=== PATIENT | female | born 1985 | race African-American/Black ===

== ENCOUNTER 2017-01-04 13:20 | Emergency (ER) | payer SELFPAY ==
[2017-01-04] MEDS ORDERED: NORMAL SALINE 500 ML IV ONE (14:38)
[2017-01-04] MEDS ORDERED: ONDANSETRON 4 MG TAB.RAPDIS PO ONE (14:39)
[2017-01-04] MEDS ORDERED: KETOROLAC TROMETHAMINE 60 MG/2 ML SDV IM ONE (14:39)
--- NOTE | 2017-01-04 14:39 | ER Document Report ---
ED Medical Screen (RME) - General Mode of Arrival: Wheelchair Information source: Patient TRAVEL OUTSIDE OF THE [place] IN LAST 30 DAYS: No - HPI Patient complains to provider of: Abdominal Pain Onset: This morning Associated Symptoms: Other - see notes above <ABBEY CANTOR - Last Filed: 01/04/17 14:42> <TELLYQUITA PEDRAZA LUPIS - Last Filed: 01/04/17 15:25> - General Chief Complaint: Abdominal Pain Stated Complaint: ABDOMINAL PAIN Notes: 31 year old female presents to the ED complaining of diffuse abdominal pain that has been present for the past few days, but suddenly got worse earlier this afternoon. Patient describes the pain as "labor pain." Patient is additionally complaining of cold and hot flashes. Patient denies dysuria. Patient denies history of cholecystectomy. (ABBEY CANTOR) - Related Data Allergies/Adverse Reactions: No Known Allergies Allergy (Verified 01/04/17 14:35) Home Medications: Current Home Medications No Home Medications 01/04/17 [History] Past Medical History - General Information source: Patient Renal/ Medical History: Denies: Hx Peritoneal Dialysis Past Surgical History: Reports: Hx Tubal Ligation. Denies: Hx Cholecystectomy - Immunizations Hx Diphtheria, Pertussis, Tetanus Vaccination: Yes <ABBEY CANTOR - Last Filed: 01/04/17 14:42> Review of Systems - Review of Systems Constitutional: See HPI, Other - hot and cold flashes EENT: No symptoms reported Cardiovascular: No symptoms reported Respiratory: No symptoms reported Gastrointestinal: See HPI, Abdominal pain - diffuse Genitourinary: No symptoms reported Female Genitourinary: No symptoms reported Musculoskeletal: No symptoms reported Skin: No symptoms reported Hematologic/Lymphatic: No symptoms reported Neurological/Psychological: No symptoms reported -: Yes All other systems reviewed and negative <ABBEY CANTOR - Last Filed: 01/04/17 14:42> Physical Exam - General General appearance: Alert, Other - Actively gagging in the exam room.. No: Appears well In distress: None - Respiratory Respiratory status: No respiratory distress - Abdominal Inspection: Normal Distension: No distension Tenderness: Tender - diffuse <ABBEY CANTOR - Last Filed: 01/04/17 14:42> Course <ABBEY CANTOR - Last Filed: 01/04/17 14:42> - Laboratory Result Diagrams: 01/04/17 14:44 01/04/17 14:44 <QUITA WILKINS - Last Filed: 01/04/17 15:25> - Re-evaluation Re-evalutation: 01/04/17 15:24 I personally performed the services described in the documentation, reviewed and edited the documentation which was dictated to the scribe in my presence, and it accurately records my words and actions. (QUITA WILKINS) Scribe Documentation - Scribe Written by Scribe:: Ana Cristina Flores, 01/04/2017 1447 acting as scribe for :: Manuel <ABBEY CANTOR - Last Filed: 01/04/17 14:42>
[2017-01-04 15:00] LABS: ABSOLUTE EOSINOPHILS # (AUTO) 0.1 10^3/uL (0.0-0.6); ABSOLUTE LYMPHOCYTES (AUTO) 1.5 10^3/uL (0.5-4.7); ABSOLUTE MONOCYTES (AUTO) 0.8 10^3/uL (0.1-1.4); ABSOLUTE NEUT (AUTO) 7.6 10^3/uL (1.7-8.2); BASOPHILS % (AUTO) 0.2 % (0-2); EOSINOPHILS % (AUTO) 0.7 % (0-6); HEMATOCRIT 42.2 % (36.0-47.0); HEMOGLOBIN 14.4 g/dL (12.0-15.5); LYMPHOCYTES % (AUTO) 15.3 % (13-45); MEAN CORPUSCULAR HEMOGLOBIN 31.4 pg (27.0-33.4); MEAN CORPUSCULAR HGB CONC 34.1 g/dL (32.0-36.0); MEAN CORPUSCULAR VOLUME 92 fl (80-97); MONOCYTES % (AUTO) 8.5 % (3-13); RED BLOOD COUNT 4.57 10^6/uL (3.72-5.28); RED CELL DISTRIBUTION WIDTH 13.1 % (11.5-14.0); SEGMENTED NEUTROPHILS % (AUTO) 75.3 % (42-78)
[2017-01-04] MEDS ORDERED: DICYCLOMINE HCL INJ 20 MG/2 ML AMPULE IM STA (15:05)
--- NOTE | 2017-01-04 15:09 | ER Document Report ---
ED GI/ - General Chief Complaint: Abdominal Pain Stated Complaint: ABDOMINAL PAIN Mode of Arrival: Wheelchair Information source: Patient TRAVEL OUTSIDE OF THE [place] IN LAST 30 DAYS: No - HPI Patient complains to provider of: Abdominal pain, Diarrhea, Vomiting. No: Dysuria, Feeding tube problem, Flank pain, Nichols catheter problem, Hematuria, Missed/Late menses, Pelvic pain, , Urinary retention, Vaginal bleeding, Vaginal discharge, Vaginal pain Quality of pain: Cramping Location: Other - Diffuse abdomen Vaginal bleeding (Compared to normal period): None Associated symptoms: Chills, Diarrhea, Nausea, Vomiting. denies: Blood in emesis, Blood in stool, Chest pain, Dysuria, Fever, Hematuria, Lightheaded, Painful intercourse, Shortness of breath, Sweaty, Syncope, Urinary hesitancy, Urinary frequency, Urinary retention, Urinary urgency, Vaginal discharge Notes: 01/04/17 15:07 Patient arrives with complaints of abdominal pain that started approximately 10: 00 this morning. She has associated nausea, vomiting diarrhea. No blood in her vomit or stool. No dysuria or hematuria. Patient states that she has waves of pain. Is not a constant pain it's a crampy pain. She's had prior tubal ligation, she denies any other abdominal surgeries. She does report that both of her children had nausea vomiting diarrhea recently. She denies any chest pain or difficulty breathing. No rash. She denies any unilateral numbness tingling or weakness. She denies any dysuria or hematuria. No vaginal bleeding or discharge. Last period was one week ago and was normal. - Related Data Allergies/Adverse Reactions: No Known Allergies Allergy (Verified 01/04/17 14:35) Past Medical History - General Information source: Patient - Social History Smoking Status: Unknown if Ever Smoked Family History: Reviewed & Not Pertinent Patient has suicidal ideation: No Patient has homicidal ideation: No Renal/ Medical History: Denies: Hx Peritoneal Dialysis Past Surgical History: Reports: Hx Tubal Ligation. Denies: Hx Cholecystectomy - Immunizations Hx Diphtheria, Pertussis, Tetanus Vaccination: Yes Review of Systems - Review of Systems -: Yes All other systems reviewed and negative Physical Exam - General General appearance: Appears well, Alert In distress: None - HEENT Head: Normocephalic Conjunctiva: Normal Ears: Normal Mouth/Lips: Normal Mucous membranes: Normal Pharynx: Normal Neck: Normal - Respiratory Respiratory status: No respiratory distress Breath sounds: Normal - Cardiovascular Rhythm: Regular Heart sounds: Normal auscultation Murmur: No - Abdominal Inspection: Normal Distension: No distension Bowel sounds: Normal Tenderness: Nontender Organomegaly: No organomegaly - Back Back: Normal, Nontender. No: CVA tenderness - Extremities General upper extremity: Normal inspection, Nontender, Normal color, Normal ROM , Normal temperature General lower extremity: Normal inspection, Nontender, Normal color, Normal ROM , Normal temperature, Normal weight bearing. No: Eliel's sign - Neurological Neuro grossly intact: Yes Cognition: Normal Orientation: AAOx4 Shan Coma Scale Eye Opening: Spontaneous Shan Coma Scale Verbal: Oriented [place] Coma Scale Motor: Obeys Commands Shan Coma Scale Total: 15 Speech: Normal Motor strength normal: LUE, RUE, LLE, RLE Sensory: Normal - Psychological Associated symptoms: Normal affect, Normal mood - Skin Skin Temperature: Warm Skin Moisture: Dry Skin Color: Normal Course - Re-evaluation Re-evalutation: 01/04/17 17:31 Patient is nontoxic appearing with stable vitals. The patient arrived with complaints of nausea vomiting diarrhea and crampy abdominal pain started this morning. Her children have had the same symptoms. Her abdominal exam is completely benign with no tenderness on exam. Her lab work is all reassuring with normal LFTs and normal white count and negative . Ultrasound shows no acute abnormality. The patient felt significantly better after getting IM Bentyl. The patient did not give a urine sample here, I explained that I cannot completely rule out a UTI without saline her urine. The patient states that she feels much better and would prefer to go home without getting a urine sample. The patient most likely has gastroenteritis as her children have had the same symptoms, I explained if her symptoms do not improve in the next 48 hours or if she gets worsening rash needs to be reevaluated immediately. The patient's evaluation of abdominal pain showed no obvious reason for pain during this emergency department visit today. I explained that there is the possibility that there could be a serious reason for the abdominal pain that was not discovered with today's workup. I stressed the importance of close observation as well as close follow-up for re-evaluation of the abdominal pain. The patient and/or family verbalized understanding of these instructions. He will be instructed to return immediately to the emergency department for increased abdominal pain, persistent vomiting, blood in vomit or stool, or any other change in symptoms or concerns. The patient is noted to have elevated blood pressure during today's emergency department visit. The patient was informed of this finding. The patient was instructed that this may be related to pre-hypertension and requires further evaluation with a primary care provider. The patient has no hypertensive symptoms at this time. The patient's emergency department workup and current diagnosis were explained to the patient and or family. Follow-up instructions were provided. Medications if prescribed were discussed. Instructions for when to return to the emergency department including specific worrisome symptoms were discussed with the patient and/or family. - Laboratory Result Diagrams: 01/04/17 14:44 01/04/17 14:44 Laboratory results interpreted by me: 01/04/17 14:44 Carbon Dioxide 21 L - Diagnostic Test Radiology reviewed: Image reviewed, Reports reviewed - Ultrasound of the abdomen negative Discharge - Discharge Clinical Impression: Nausea vomiting and diarrhea Abdominal pain Qualifiers: Abdominal location: generalized Qualified Code(s): R10.84 - Generalized abdominal pain Condition: Stable Disposition: HOME, SELF-CARE Instructions: Gastroenteritis (adult) ([facility]) Additional Instructions: Take medications as prescribed. Drink small amounts of fluids as frequently as possible. Follow-up if not better in 48 hours, sooner for increased pain, fever , persistent vomiting, high fever, or any further concerns. Your blood pressure was elevated during today's visit. Have this rechecked with your doctor. Prescriptions: Dicyclomine HCl [Bentyl 10 mg Capsule] 1 cap PO TID PRN #15 cap PRN Reason: Ondansetron HCl [Zofran 4 mg Tablet] 1 tab PO Q6H PRN #10 tablet PRN Reason: Forms: Elevated Blood Pressure
[2017-01-04 15:10] LABS: ALANINE AMINOTRANSFERASE 26 U/L (9-52); ALBUMIN 4.4 g/dL (3.5-5.0); ALKALINE PHOSPHATASE 122 U/L (38-126); ANION GAP 13 (5-19); ASPARTATE AMINO TRANSFERASE 28 U/L (14-36); BILIRUBIN,DIRECT 0.2 mg/dL (0.0-0.4); BILIRUBIN,TOTAL 0.3 mg/dL (0.2-1.3); BLOOD UREA NITROGEN 12 mg/dL (7-20); CALCIUM 9.6 mg/dL (8.4-10.2); CARBON DIOXIDE 21 mmol/L (22-30); CHLORIDE 106 mmol/L (98-107); CREATININE RESULT 0.62 mg/dL (0.52-1.25); GLUCOSE 90 mg/dL (75-110); LIPASE 75.1 U/L (23-300); POTASSIUM 4.3 mmol/L (3.6-5.0); SODIUM 139.6 mmol/L (137-145); TOTAL PROTEIN 7.9 g/dL (6.3-8.2)
[2017-01-04 17:52] VITALS: BP 108/72
== END 2017-01-04 17:49 | disposition home or self-care (01) ==
LOC: ER 13:20
DX: R10.84 Generalized abdominal pain (principal); R11.2 Nausea with vomiting, unspecified; R19.7 Diarrhea, unspecified
CPT/HCPCS: 99284; 96372; 36415; 84702; 83690; 85025; 80053; 76705; J0500; J1885; S0119